=== PATIENT | female | born 1980 | race Caucasian/White ===

== ENCOUNTER 2016-11-09 21:59 | Inpatient (IN) | payer MEDICAID ==
[~2016-11-09] VITALS: Ht 175.3 cm; Wt 80.5 kg
[2016-11-09 22:50] LABS: GLUCOSE,POINT OF CARE 87 MG/DL (70-110)
[2016-11-09 23:08] LABS: APPEARANCE,URINE CLOUDY (CLEAR); GLUCOSE, URINE (UA) NEGATIVE (NEGATIVE); KETONES,URINE NEGATIVE (NEGATIVE); LEUKOCYTE ESTERASE ,URINE NEGATIVE (NEGATIVE); OCCULT BLOOD,URINE NEGATIVE (NEGATIVE); PH,URINE 5.5 (5.0-8.0); PROTEIN,URINE NEGATIVE (NEGATIVE)
[2016-11-09 23:11] LABS: ADD UA MICROSCOPIC YES
[2016-11-09 23:16] LABS: RBC,URINE 0-2 /HPF (0-2); SQUAMOUS EPITHELIAL CELL,UR Many /LPF (None Seen)
[2016-11-09 23:19] LABS: HEMATOCRIT 23.8 % (36-46); MEAN CORPUSCULAR VOLUME 61 fL (80-100); RED BLOOD CELL COUNT(AUTO) 3.91 MIL/uL (4.00-5.20); RED CELL DISTRIBUTION WIDTH 26.2 % (11.5-14.5)
[2016-11-09 23:23] LABS: HEMOGLOBIN 6.7 g/dL (12.0-16.0); PLATELET COUNT (AUTO) 980 K/uL (150-450); PROTHROMBIN TIME 10.2 SEC (9.4-11.6)
[2016-11-09] MEDS ORDERED: ACETAMINOPHEN 325 MG TABLET PO PRN (23:30)
[2016-11-09] MEDS ORDERED: ONDANSETRON HCL 4 MG/2 ML VIAL IVP PRN (23:30)
[2016-11-09] MEDS ORDERED: BISACODYL 10 MG RECTAL RECTAL SUPPOSITORY PR PRN (23:30)
[2016-11-09] MEDS ORDERED: ZOLPIDEM TARTRATE 10 MG TABLET PO PRN (23:30)
[2016-11-09] MEDS ORDERED: MAGNESIUM HYDROXIDE SUSPENSION 30 ML UDCUP PO PRN (23:30)
[2016-11-09 23:37] LABS: B-TYPE NATRIURETIC PEPTIDE 32 pg/mL (0-100)
[2016-11-09 23:41] LABS: BAND NEUTROPHILS % (MANUAL) 6 % (1-5); LYMPHOCYTES % (MANUAL) 15 % (22-44); TOTAL CELLS COUNTED 100
[2016-11-09 23:42] LABS: RBC MORPHOLOGY COMMENT DIMORPHIC RBC
[2016-11-09 23:44] LABS: ANION GAP 11 mmol/L (8-16); CALCIUM, TOTAL 8.6 mg/dL (8.8-10.5); CARBON DIOXIDE 26 mmol/L (22-29); CHLORIDE 103 mmol/L (98-107); CREATININE 0.59 mg/dL (0.60-1.30); GLOMERULAR FILTR. RATE CALC > 60 mL/min (>60); POTASSIUM 3.8 mmol/L (3.5-5.1); SODIUM SERUM 140 mmol/L (136-145); UREA NITROGEN, BLOOD 14 mg/dL (7-18)
[2016-11-09 23:50] LABS: ALANINE AMINOTRANSFERASE 19 U/L (12-78); ALBUMIN 3.5 g/dL (3.4-5.0); ASPARTATE AMINOTRANSFERASE 17 U/L (15-37); BILIRUBIN,TOTAL 0.3 mg/dL (0.1-1.0); CREATINE KINASE, TOTAL 44 U/L (26-192); TOTAL PROTEIN, SERUM 7.5 g/dL (6.4-8.2)
[2016-11-09] MEDS: CefTRIAXone 1 GM/DEXTROSE 50 ML IV SCH (23:57)
[2016-11-10] MEDS ORDERED: ASPIRIN 81 MG CHEWABLE TABLET PO ONE (01:00)
[2016-11-10 01:55] LABS: HEMATOCRIT 22.8 % (36-46); MEAN CORPUSCULAR HEMOGLOBIN 17.4 pg (26.0-34.0); MEAN CORPUSCULAR HGB CONC 28.4 G/dL (31.0-37.0); MEAN CORPUSCULAR VOLUME 61 fL (80-100); RED BLOOD CELL COUNT(AUTO) 3.74 MIL/uL (4.00-5.20); RED CELL DISTRIBUTION WIDTH 27.3 % (11.5-14.5); WHITE BLOOD COUNT (AUTO) 17.5 K/uL (4.5-11.0)
[2016-11-10 01:57] LABS: HEMOGLOBIN 6.5 g/dL (12.0-16.0)
[2016-11-10 01:58] LABS: PLATELET COUNT (AUTO) 976 K/uL (150-450)
[2016-11-10 02:10] LABS: BAND NEUTROPHILS % (MANUAL) 6 % (1-5); LYMPHOCYTES % (MANUAL) 24 % (22-44); RBC MORPHOLOGY COMMENT DIMORPHIC RBC; TOTAL CELLS COUNTED 100
[2016-11-10 05:23] LABS: HEMATOCRIT 22.6 % (36-46); MEAN CORPUSCULAR HEMOGLOBIN 17.2 pg (26.0-34.0); MEAN CORPUSCULAR HGB CONC 28.1 G/dL (31.0-37.0); MEAN CORPUSCULAR VOLUME 61 fL (80-100); RED BLOOD CELL COUNT(AUTO) 3.69 MIL/uL (4.00-5.20); RED CELL DISTRIBUTION WIDTH 26.6 % (11.5-14.5)
[2016-11-10 05:36] LABS: IRON, SERUM 10 mcg/dL (50-175); TOTAL IRON BINDING CAPACITY 509 mcg/dL (250-450)
[2016-11-10 05:45] LABS: ANION GAP 8 mmol/L (8-16); CALCIUM, TOTAL 8.4 mg/dL (8.8-10.5); CARBON DIOXIDE 26 mmol/L (22-29); CHLORIDE 105 mmol/L (98-107); CREATININE 0.54 mg/dL (0.60-1.30); GLOMERULAR FILTR. RATE CALC > 60 mL/min (>60); HEMOGLOBIN 6.4 g/dL (12.0-16.0); POTASSIUM 3.5 mmol/L (3.5-5.1); SODIUM SERUM 139 mmol/L (136-145); UREA NITROGEN, BLOOD 11 mg/dL (7-18)
[2016-11-10 05:46] LABS: PLATELET COUNT (AUTO) 815 K/uL (150-450)
[2016-11-10 05:48] LABS: ALANINE AMINOTRANSFERASE 17 U/L (12-78); ALBUMIN 3.2 g/dL (3.4-5.0); ASPARTATE AMINOTRANSFERASE 15 U/L (15-37); BILIRUBIN,TOTAL 0.2 mg/dL (0.1-1.0)
[2016-11-10 06:11] LABS: BAND NEUTROPHILS % (MANUAL) 10 % (1-5); LYMPHOCYTES % (MANUAL) 24 % (22-44); RBC MORPHOLOGY COMMENT DIMORPHIC RBC; TOTAL CELLS COUNTED 100
[2016-11-10 08:39] LABS: ERYTHROCYTE SEDIMENTATION RATE 19 MM/HR (0-20)
[2016-11-10] MEDS: PANTOPRAZOLE SODIUM 40 MG DR TABLET PO SCH (08:57)
[2016-11-10] MEDS: SOD FERRIC GLUC COMPLX/SUCROSE 125 MG in SODIUM CHLORIDE 0.9% 100 ML IV SCH (13:58)
[2016-11-10 20:03] VITALS: BP 151/61
[2016-11-10] MEDS ORDERED: SODIUM CHLORIDE 0.9% 1,000 ML IV ONE (23:29)
[2016-11-10] MEDS ORDERED: IPRATROPIUM BROMIDE 0.5 MG/2.5 ML NEB SOLUTION NEB PRN (23:30)
[2016-11-10] MEDS ORDERED: ALBUTEROL SULFATE 2.5 MG/0.5 ML NEB SOLUTION NEB PRN (23:30)
[2016-11-10 23:42] VITALS: BP 121/75
[2016-11-11] VITALS (13 sets, daily range): BP systolic 107–134; BP diastolic 50–78
[2016-11-11] MEDS: CefTRIAXone 1 GM/DEXTROSE 50 ML IV SCH (01:45)
[2016-11-11 06:22] LABS: ALANINE AMINOTRANSFERASE 29 U/L (12-78); ALBUMIN 3.3 g/dL (3.4-5.0); ANION GAP 9 mmol/L (8-16); ASPARTATE AMINOTRANSFERASE 28 U/L (15-37); BILIRUBIN,TOTAL 0.5 mg/dL (0.1-1.0); CALCIUM, TOTAL 8.5 mg/dL (8.8-10.5); CARBON DIOXIDE 25 mmol/L (22-29); CHLORIDE 105 mmol/L (98-107); CREATININE 0.57 mg/dL (0.60-1.30); GLOMERULAR FILTR. RATE CALC > 60 mL/min (>60); POTASSIUM 4.1 mmol/L (3.5-5.1); SODIUM SERUM 139 mmol/L (136-145); TOTAL PROTEIN, SERUM 7.2 g/dL (6.4-8.2); UREA NITROGEN, BLOOD 9 mg/dL (7-18)
[2016-11-11 06:58] LABS: HEMOGLOBIN 8.9 g/dL (12.0-16.0); MEAN CORPUSCULAR HEMOGLOBIN 19.5 pg (26.0-34.0); MEAN CORPUSCULAR HGB CONC 28.6 G/dL (31.0-37.0); RED BLOOD CELL COUNT(AUTO) 4.57 MIL/uL (4.00-5.20); RED CELL DISTRIBUTION WIDTH 29.8 % (11.5-14.5); WHITE BLOOD COUNT (AUTO) 16.5 K/uL (4.5-11.0)
[2016-11-11 07:09] LABS: MEAN CORPUSCULAR VOLUME 68 fL (80-100)
[2016-11-11 07:12] LABS: PLATELET COUNT (AUTO) 991 K/uL (150-450)
[2016-11-11] MEDS ORDERED: 0.9% SODIUM CHLORIDE 10 ML SYRINGE IVP PRN (07:15)
[2016-11-11] MEDS: PANTOPRAZOLE SODIUM 40 MG DR TABLET PO SCH (08:38)
[2016-11-11 09:42] LABS: BAND NEUTROPHILS % (MANUAL) 3 % (1-5); BASOPHILS % (MANUAL) 1 % (0-2); EOSINOPHILS % (MANUAL) 2 % (1-6); LYMPHOCYTES % (MANUAL) 18 % (22-44); TOTAL CELLS COUNTED 100
[2016-11-11 09:45] LABS: RBC MORPHOLOGY COMMENT DIMORPHIC RBC; WBC MORPHOLOGY TOXIC GRANULATION
[2016-11-11] MEDS: SOD FERRIC GLUC COMPLX/SUCROSE 125 MG in SODIUM CHLORIDE 0.9% 100 ML IV SCH (14:28)
[2016-11-11] MEDS: ASPIRIN 81 MG CHEWABLE TABLET PO SCH (21:09)
[2016-11-12] VITALS: BP 120/84
[2016-11-12] MEDS: CefTRIAXone 1 GM/DEXTROSE 50 ML IV SCH (00:38)
[2016-11-12] MEDS ORDERED: SODIUM CHLORIDE 0.9% 250 ML IV ONE (00:41)
[2016-11-12 03:15] VITALS: BP 131/64
[2016-11-12] MEDS: OxyCODONE HCL/ACETAMINOPHEN 5-325 MG TABLET PO PRN ×3 (05:09→18:52)
[2016-11-12 06:38] LABS: BASOPHILS % (AUTO) 0.9 % (0.0-2.0); HEMATOCRIT 29.8 % (36-46); HEMOGLOBIN 8.6 g/dL (12.0-16.0); LYMPHOCYTES # (AUTO) 3.3 K/uL (1.0-4.8); LYMPHOCYTES % (AUTO) 20.5 % (22.0-44.0); MEAN CORPUSCULAR HEMOGLOBIN 19.8 pg (26.0-34.0); MEAN CORPUSCULAR HGB CONC 28.8 G/dL (31.0-37.0); MEAN CORPUSCULAR VOLUME 69 fL (80-100); MONOCYTES # (AUTO) 1.1 K/uL (0.1-1.0); MONOCYTES % (AUTO) 6.5 % (2.0-9.0); NEUTROPHILS # (AUTO) 11.6 K/uL (1.8-7.7); NEUTROPHILS % (AUTO) 71.1 % (40.0-70.0); RED BLOOD CELL COUNT(AUTO) 4.34 MIL/uL (4.00-5.20); RED CELL DISTRIBUTION WIDTH 30.4 % (11.5-14.5); WHITE BLOOD COUNT (AUTO) 16.3 K/uL (4.5-11.0)
[2016-11-12 06:42] LABS: PLATELET COUNT (AUTO) 978 K/uL (150-450)
[2016-11-12 06:54] LABS: ALANINE AMINOTRANSFERASE 28 U/L (12-78); ANION GAP 7 mmol/L (8-16); ASPARTATE AMINOTRANSFERASE 22 U/L (15-37); BILIRUBIN,TOTAL 0.1 mg/dL (0.1-1.0); CALCIUM, TOTAL 8.5 mg/dL (8.8-10.5); CARBON DIOXIDE 27 mmol/L (22-29); CHLORIDE 105 mmol/L (98-107); CREATININE 0.61 mg/dL (0.60-1.30); GLOMERULAR FILTR. RATE CALC > 60 mL/min (>60); POTASSIUM 3.9 mmol/L (3.5-5.1); SODIUM SERUM 139 mmol/L (136-145); TOTAL PROTEIN, SERUM 6.7 g/dL (6.4-8.2); UREA NITROGEN, BLOOD 8 mg/dL (7-18)
[2016-11-12 07:25] LABS: RBC MORPHOLOGY COMMENT ABNORMAL RBC MORPH
[2016-11-12 07:40] VITALS: BP 117/68
[2016-11-12] MEDS ORDERED: GADOBUTROL 1 MMOL/ML 10 ML VIAL IVP ONE (07:48)
[2016-11-12] MEDS: PANTOPRAZOLE SODIUM 40 MG DR TABLET PO SCH (09:16)
[2016-11-12] MEDS: ASPIRIN 81 MG CHEWABLE TABLET PO SCH (09:16)
[2016-11-12 10:54] VITALS: BP 129/67
[2016-11-12 15:24] VITALS: BP 114/84
[2016-11-12] MEDS: SOD FERRIC GLUC COMPLX/SUCROSE 125 MG in SODIUM CHLORIDE 0.9% 100 ML IV SCH (17:36)
[2016-11-12 21:28] VITALS: BP 127/69
[2016-11-12] MEDS: SIMVASTATIN 20 MG TABLET PO SCH (21:46)
[2016-11-13 00:18] VITALS: BP 130/53
[2016-11-13] MEDS: CefTRIAXone 1 GM/DEXTROSE 50 ML IV SCH ×2 (01:10→23:16)
[2016-11-13 04:55] VITALS: BP 117/73
[2016-11-13 06:38] LABS: ALANINE AMINOTRANSFERASE 29 U/L (12-78); ALBUMIN 3.4 g/dL (3.4-5.0); ANION GAP 8 mmol/L (8-16); ASPARTATE AMINOTRANSFERASE 18 U/L (15-37); BILIRUBIN,TOTAL 0.3 mg/dL (0.1-1.0); CALCIUM, TOTAL 8.5 mg/dL (8.8-10.5); CARBON DIOXIDE 27 mmol/L (22-29); CHLORIDE 104 mmol/L (98-107); CREATININE 0.65 mg/dL (0.60-1.30); GLOMERULAR FILTR. RATE CALC > 60 mL/min (>60); POTASSIUM 3.7 mmol/L (3.5-5.1); SODIUM SERUM 139 mmol/L (136-145); TOTAL PROTEIN, SERUM 7.3 g/dL (6.4-8.2); UREA NITROGEN, BLOOD 12 mg/dL (7-18)
[2016-11-13 06:43] LABS: HEMATOCRIT 31.7 % (36-46); HEMOGLOBIN 9.3 g/dL (12.0-16.0); MEAN CORPUSCULAR HEMOGLOBIN 20.7 pg (26.0-34.0); MEAN CORPUSCULAR HGB CONC 29.3 G/dL (31.0-37.0); MEAN CORPUSCULAR VOLUME 70 fL (80-100); RED CELL DISTRIBUTION WIDTH 31.2 % (11.5-14.5)
[2016-11-13 07:04] LABS: PLATELET COUNT (AUTO) 1137 K/uL (150-450)
[2016-11-13 07:34] LABS: BAND NEUTROPHILS % (MANUAL) 1 % (1-5); LYMPHOCYTES % (MANUAL) 22 % (22-44); TOTAL CELLS COUNTED 100
[2016-11-13] MEDS: ASPIRIN 81 MG CHEWABLE TABLET PO SCH (08:32)
[2016-11-13] MEDS: PANTOPRAZOLE SODIUM 40 MG DR TABLET PO SCH (08:32)
[2016-11-13 11:39] VITALS: BP 133/74
[2016-11-13] MEDS: SOD FERRIC GLUC COMPLX/SUCROSE 125 MG in SODIUM CHLORIDE 0.9% 100 ML IV SCH (13:47)
[2016-11-13] MEDS: OxyCODONE HCL/ACETAMINOPHEN 5-325 MG TABLET PO PRN (15:55)
[2016-11-13 19:43] VITALS: BP 138/87
[2016-11-13] MEDS ORDERED: SODIUM CHLORIDE 0.9% 250 ML IV ONE (23:14)
[2016-11-13] MEDS: SIMVASTATIN 20 MG TABLET PO SCH (23:16)
[2016-11-14 00:24] VITALS: BP 133/78
[2016-11-14 05:04] VITALS: BP 126/66
[2016-11-14 06:54] LABS: BASOPHILS % (AUTO) 0.3 % (0.0-2.0); HEMATOCRIT 32.6 % (36-46); HEMOGLOBIN 9.7 g/dL (12.0-16.0); LYMPHOCYTES # (AUTO) 3.6 K/uL (1.0-4.8); LYMPHOCYTES % (AUTO) 20.8 % (22.0-44.0); MEAN CORPUSCULAR HEMOGLOBIN 20.9 pg (26.0-34.0); MEAN CORPUSCULAR HGB CONC 29.8 G/dL (31.0-37.0); MEAN CORPUSCULAR VOLUME 70 fL (80-100); MONOCYTES % (AUTO) 5.5 % (2.0-9.0); NEUTROPHILS # (AUTO) 12.7 K/uL (1.8-7.7); NEUTROPHILS % (AUTO) 72.4 % (40.0-70.0); RED BLOOD CELL COUNT(AUTO) 4.64 MIL/uL (4.00-5.20); RED CELL DISTRIBUTION WIDTH 32.4 % (11.5-14.5); WHITE BLOOD COUNT (AUTO) 17.5 K/uL (4.5-11.0)
[2016-11-14 07:01] LABS: PLATELET COUNT (AUTO) 1063 K/uL (150-450)
[2016-11-14 07:05] LABS: ALANINE AMINOTRANSFERASE 29 U/L (12-78); ALBUMIN 3.5 g/dL (3.4-5.0); ANION GAP 6 mmol/L (8-16); ASPARTATE AMINOTRANSFERASE 17 U/L (15-37); BILIRUBIN,TOTAL 0.3 mg/dL (0.1-1.0); CALCIUM, TOTAL 8.7 mg/dL (8.8-10.5); CARBON DIOXIDE 29 mmol/L (22-29); CHLORIDE 103 mmol/L (98-107); CREATININE 0.63 mg/dL (0.60-1.30); GLOMERULAR FILTR. RATE CALC > 60 mL/min (>60); POTASSIUM 3.5 mmol/L (3.5-5.1); SODIUM SERUM 138 mmol/L (136-145); TOTAL PROTEIN, SERUM 7.5 g/dL (6.4-8.2); UREA NITROGEN, BLOOD 12 mg/dL (7-18)
[2016-11-14 07:12] LABS: RBC MORPHOLOGY COMMENT ABNORMAL RBC MORPH
[2016-11-14 07:19] VITALS: BP 127/71
[2016-11-14] MEDS: PANTOPRAZOLE SODIUM 40 MG DR TABLET PO SCH (08:42)
[2016-11-14] MEDS: ASPIRIN 81 MG CHEWABLE TABLET PO SCH (08:42)
[2016-11-14] MEDS: OxyCODONE HCL/ACETAMINOPHEN 5-325 MG TABLET PO PRN (08:50)
[2016-11-14] MEDS ORDERED: SIMV-260 PO ×2 (09:57→10:08)
[2016-11-14] MEDS ORDERED: FERR-89 PO (09:57)
[2016-11-14] MEDS ORDERED: ASPI81 PO (09:57)
[2016-11-14 11:16] VITALS: BP 135/80
[2016-11-19 13:13] LABS: JAK2 GENE V617F QUAL -GENOPTIX See Separate Report
== END 2016-11-14 12:06 | disposition home or self-care (01) | DRG 720 ==
LOC: EMS 22:09 → 5N 11-10 18:19 → 6N 11-11 18:50
PROVIDERS: ADMIT Hospitalist; ATTEND Hospitalist
PROC: 30233N1 Transfusion of Nonautologous Red Blood Cells into Peripheral Vein, Percutaneous Approach (ICD-10-PCS; principal; 2016-11-10)
DX: A41.9 Sepsis, unspecified organism (principal); G45.9 Transient cerebral ischemic attack, unspecified; N39.0 Urinary tract infection, site not specified; D47.3 Essential (hemorrhagic) thrombocythemia; D50.9 Iron deficiency anemia, unspecified; F17.210 Nicotine dependence, cigarettes, uncomplicated; F41.9 Anxiety disorder, unspecified; J45.909 Unspecified asthma, uncomplicated; R20.0 Anesthesia of skin; Z80.8 Family history of malignant neoplasm of other organs or systems; Z86.73 Personal history of transient ischemic attack (TIA), and cerebral infarction without residual deficits; Z98.890 Other specified postprocedural states; Z79.899 Other long term (current) drug therapy; Z71.6 Tobacco abuse counseling
CPT/HCPCS: 36430; 70450; 70553; 81206; 81270; 82607; 82746; 82962; 83540; 83550; 85007; 85651; 86850; 86900; 86901; 86920; 87040; 87086; 93005; 99285; A9585; J0696; J2916; J7030; J7050; P9016